=== PATIENT | male | born 1950 | race Asian ===

== ENCOUNTER → 2017-01-08 | Outpatient (CLI) | payer OTHER ==
[~2017-01-08] MED LIST: GADOBUTROL 10 MMOL/10 ML VIAL ONE; LISI1TAB7 PO; METO50TA3 PO
== END | disposition home or self-care (01) ==
LOC: CFH 13:36
DX: B18.1 Chronic viral hepatitis B without delta-agent (principal); K76.89 Other specified diseases of liver; I82.0 Budd-Chiari syndrome
CPT/HCPCS: 74183; A9585

== ENCOUNTER → 2017-03-26 | Outpatient (CLI) | payer OTHER ==
[~2017-03-26] MED LIST changes: +ASPI-650 PO; -GADOBUTROL 10 MMOL/10 ML VIAL ONE; +OMNIPAQUE 350 MG/ML, 100ML BOTTLE ONE
== END | disposition home or self-care (01) ==
LOC: CFH 10:05
PROVIDERS: ATTEND Radiology Radiation Oncology
DX: C79.71 Secondary malignant neoplasm of right adrenal gland (principal); C34.90 Malignant neoplasm of unspecified part of unspecified bronchus or lung; C22.9 Malignant neoplasm of liver, not specified as primary or secondary; I82.220 Acute embolism and thrombosis of inferior vena cava; R59.9 Enlarged lymph nodes, unspecified
CPT/HCPCS: 74170; Q9967

== ENCOUNTER → 2017-05-28 | Outpatient (CLI) | payer OTHER | END | disposition home or self-care (01) | LOC: CFH 11:47 | PROVIDERS: ATTEND Radiology Radiation Oncology | DX: C22.0 Liver cell carcinoma (principal); R16.0 Hepatomegaly, not elsewhere classified; E27.9 Disorder of adrenal gland, unspecified; K82.0 Obstruction of gallbladder; I10 Essential (primary) hypertension; I70.0 Atherosclerosis of aorta | CPT/HCPCS: 74170; Q9967 ==

== ENCOUNTER → 2017-05-31 | Outpatient (CLI) | payer OTHER ==
[~2017-05-31] MED LIST changes: -OMNIPAQUE 350 MG/ML, 100ML BOTTLE ONE
== END | disposition home or self-care (01) ==
LOC: ROC 07:34
PROVIDERS: ATTEND Radiology Radiation Oncology
DX: C22.0 Liver cell carcinoma (principal); B18.1 Chronic viral hepatitis B without delta-agent; Z79.82 Long term (current) use of aspirin
CPT/HCPCS: 99213; G0463

== ENCOUNTER 2017-08-05 09:14 | Day surgery (SDC) | payer OTHER, MEDICARE ==
[~2017-08-05] VITALS: Ht 165.1 cm; Wt 63.1 kg
[~2017-08-05 09:14] MED LIST changes: -METO50TA3 PO; +METO50TA6 PO
[2017-08-05 10:15] VITALS: BP 163/103
[2017-08-05 10:23] LABS: INTERNATIONAL NORMALIZED RATIO 1.03 (0.93-1.1); PROTHROMBIN TIME 10.6 Seconds (9.6-11.5)
[2017-08-05] MEDS ORDERED: LACTATED RINGERS 1,000 ML IV SCH (10:24)
[2017-08-05] MEDS ORDERED: CEFAZOLIN PMX 1GM/50ML 50 ML IV ONE (10:30)
[2017-08-05] MEDS ORDERED: CEFAZOLIN 1,000 MG IM ONE (10:30)
[2017-08-05] MEDS ORDERED: MIDAZOLAM 1 MG/ML, 5ML ONE ×2 (10:59)
[2017-08-05] MEDS ORDERED: FENTANYL PF 100 MCG/2ML ONE ×2 (10:59)
[2017-08-05] MEDS ORDERED: FLUMAZENIL 0.1 MG/1 ML, 5ML ONE (10:59)
[2017-08-05] MEDS ORDERED: NALOXONE 1 MG/ML, 2ML ONE (10:59)
[2017-08-05] MEDS ORDERED: VISIPAQUE 270 MG/ML, 50ML BOTTLE ONE (11:00)
[2017-08-05] MEDS ORDERED: OMNIPAQUE 350 MG/ML, 100ML BOTTLE ONE (11:00)
[2017-08-05] MEDS ORDERED: DOXORUBICIN IV ONE (11:30)
[2017-08-05] MEDS ORDERED: SODIUM CHLORIDE 0.9% 1,000 ML IV SCH (12:30)
== END 2017-08-05 16:30 ==
LOC: OUT 09:14
PROVIDERS: ATTEND Surgery
DX: C22.7 Other specified carcinomas of liver (principal); Z86.19 Personal history of other infectious and parasitic diseases; I10 Essential (primary) hypertension; E78.5 Hyperlipidemia, unspecified; Z98.890 Other specified postprocedural states
CPT/HCPCS: 36415; 37243; 75894; 85610; 99156; 99157; C1751; C1760; C1769; C1889; C1894; J0690; J2250; J3010; J7120; Q9966; Q9967; J2310